=== PATIENT | male | born 1990 | race Caucasian/White ===

== ENCOUNTER 2021-09-25 18:05 | Emergency (ER) | payer MEDICAID, OTHER ==
[~2021-09-25] VITALS: Ht 177.8 cm; Wt 100.0 kg
[2021-09-25] MEDS ORDERED: SODIUM CHLORIDE 0.9% 1,000 ML IV ONE (18:45)
[2021-09-25] MEDS ORDERED: LIDOCAINE HCL/PF 1% 10 MG/ML 5ML VIAL INFIL ONE (18:45)
[2021-09-25] MEDS ORDERED: IBUPROFEN 600MG TABLET PO ONE (18:45)
[2021-09-25] MEDS ORDERED: ACETAMINOPHEN 325MG TABLET PO ONE (18:45)
[2021-09-25] MEDS ORDERED: LORAZEPAM 2MG/ML CPJ IV ONE (18:45)
[2021-09-25] MEDS ORDERED: BACITRACIN ZINC OINT UDPKT TOP ONE (18:45)
[2021-09-25] MEDS ORDERED: LIDOCAINE HCL 1% 20ML VIAL (Pyxis) INJ INFIL NR (19:45)
[2021-09-25 22:20] VITALS: BP 145/76
== END 2021-09-25 23:15 | disposition home or self-care (01) ==
LOC: ER 18:05
DX: S61.412A Laceration without foreign body of left hand, initial encounter (principal); G93.40 Encephalopathy, unspecified; F15.10 Other stimulant abuse, uncomplicated; W01.110A Fall on same level from slipping, tripping and stumbling with subsequent striking against sharp glass, initial encounter; Y93.89 Activity, other specified; Y92.9 Unspecified place or not applicable
CPT/HCPCS: 12002; 73120; 96361; 96374; 99284; J2060; J3490; J7030

== ENCOUNTER 2021-09-26 05:26 | Emergency (ER) | payer MEDICAID ==
[~2021-09-26] VITALS: Ht 170.2 cm; Wt 87.0 kg
[2021-09-26 05:34] VITALS: BP 115/92
[2021-09-26] MEDS ORDERED: LORAZEPAM 1MG TABLET PO ONE (08:30)
== END 2021-09-26 09:12 | disposition left against medical advice (07) ==
LOC: ER 05:26
DX: S61.412D Laceration without foreign body of left hand, subsequent encounter (principal); X58.XXXD Exposure to other specified factors, subsequent encounter; F19.10 Other psychoactive substance abuse, uncomplicated; F20.9 Schizophrenia, unspecified; F17.290 Nicotine dependence, other tobacco product, uncomplicated; F12.10 Cannabis abuse, uncomplicated; F15.10 Other stimulant abuse, uncomplicated
CPT/HCPCS: 99281; Z7610